=== PATIENT | female | born 2000 | race Caucasian/White ===

== ENCOUNTER 2024-06-24 02:15 | Emergency (ER) | payer SELFPAY ==
[2024-06-24] VITALS (10 sets, daily range): BP systolic 110–140; BP diastolic 71–92; PULSE 82–105; TEMP 36.9; O2SAT 96–99; BMI 22.3
--- NOTE | 2024-06-24 02:26 | ED.GENADUL1 ---
HPI HPI - General Adult General Chief complaint: Nausea/Vomiting/Diarrhea Stated complaint: NVD Time Seen by Provider: 06/24/24 02:19 Source: patient Mode of arrival: walk-in Limitations: no limitations History of Present Illness HPI narrative: 23-year-old female presents to the ED for nausea vomiting and diarrhea which started about 10 hours ago. No fever or hematemesis. She states she vomits when she tries to drink something. LMP was almost a month ago. Related Data Previous Rx's ?Medication ?Instructions ?Recorded ondansetron 4 mg disintegrating 4 mg PO Q6H PRN nausea and 06/24/24 tablet vomiting #20 tabs Allergies Allergy/AdvReac Type Severity Reaction Status Date / Time No Known Drug Allergies Allergy Verified 06/24/24 02:20 Opioid HPI Opioid Management Most Recent Opioid Data: No Data to Display Review of Systems ROS Narrative A ten point review of systems is negative except as noted above. PFSH PFSH Social History Little interest or pleasure in doing things: not at all Feeling down, depressed, or hopeless: not at all Exam Narrative Exam Narrative: Nurses note and vital signs reviewed and patient is not hypoxic. General: The patient appears well and in no apparent distress. Patient is resting comfortably on cart. Skin: Warm, dry, no pallor noted. There is no rash noted. Head: Normocephalic, atraumatic Eye: Normal conjunctiva, no drainage Ears, Nose, Mouth, and Throat: oral mucosa is moist. Nares patent. Cardiovascular: Regular Rate and Rhythm Respiratory: Patient is in no distress, no accessory muscle use, lungs are clear to auscultation, no wheezing, rales or rhonchi Back: non-tender GI: Soft and nontender Musculoskeletal: No joint swelling Neurological: A&O, normal speech Psychiatric: Cooperative Constitutional Vital Signs, click to edit/add: Last Vital Signs Temp 98.5 F 06/24/24 02:22 Pulse 82 06/24/24 02:58 Resp 18 06/24/24 02:58 BP 126/71 06/24/24 02:30 Pulse Ox 99 06/24/24 02:58 O2 Del Method Room Air 06/24/24 02:22 Course Vital Signs Vital signs: Vital Signs Temperature 98.5 F 06/24/24 02:22 Pulse Rate 105 H 06/24/24 02:22 Respiratory Rate 18 06/24/24 02:22 Blood Pressure 140/92 H 06/24/24 02:22 Pulse Oximetry 98 06/24/24 02:22 Oxygen Delivery Method Room Air 06/24/24 02:22 Temperature 98.5 F 06/24/24 02:22 Pulse Rate 82 06/24/24 02:58 Respiratory Rate 18 06/24/24 02:58 Blood Pressure 126/71 06/24/24 02:30 Pulse Oximetry 99 06/24/24 02:58 Oxygen Delivery Method Room Air 06/24/24 02:22 Medical Decision Making MDM Narrative Medical decision making narrative: Blood work is nonspecific and she is not . She was given IV fluids and Zofran and is feeling improved and will be discharged home with a prescription for Zofran. Treatment diagnosis and follow-up were discussed with the patient. Differential Diagnosis Differential Diagnosis: Food poisoning, gastroenteritis, dehydration, Lab Data Lab results reviewed: Yes I reviewed the patient's lab results Labs: Lab Results 06/24/24 Range/Units 02:25 WBC 14.5 H (4.0-11.0) 10^3/uL RBC 4.86 (4.20-5.40) 10^6/uL Hgb 14.2 (12.0-16.0) g/dL Hct 41.2 (36.0-48.0) % MCV 84.8 (81.0-99.0) fL MCH 29.2 (26.7-34.0) pg MCHC 34.5 (29.9-35.2) g/dL RDW 13.0 (11.0-15.0) % Plt Count 242 (150-450) 10^3/uL MPV 10.0 (9.5-13.5) fL Sodium 139 (136-145) mmol/L Potassium 4.1 (3.5-5.1) mmol/L Chloride 104 (98-107) mmol/L Carbon Dioxide 20.7 L (21.0-32.0) mmol/L Anion Gap 18.4 BUN 12.0 (7.0-18.0) mg/dL Creatinine 0.84 (0.55-1.02) mg/dL Est GFR ( Amer) >60 (>=60 mL/min/1.73m^2) Est GFR (Non-Af Amer) >60 (>=60 mL/min/1.73m^2) BUN/Creatinine Ratio 14.3 Glucose 119 H (74-106) mg/dL Calcium 9.0 (8.5-10.1) mg/dL Serum HCG, Qual Negative (NEGATIVE) Discharge Plan Discharge Chief Complaint: Nausea/Vomiting/Diarrhea Clinical Impression: Nausea, vomiting, and diarrhea Patient Disposition: Home, Self-Care Time of Disposition Decision: 03:10 Condition: Good Mode of Transportation: Private Vehicle Prescriptions / Home Meds: New ondansetron 4 mg tablet,disintegrating 4 mg PO Q6H PRN (Reason: nausea and vomiting) Qty: 20 0RF Print Language: Turkmen Instructions: Acute Nausea and Vomiting (ED), Acute Diarrhea (ED) Referrals: Physician,Non-Staff, MD [Primary Care Provider] - 1 week
--- NOTE | 2024-06-24 02:30 | PC.NURSE ---
complains of nausea and vomiting onset 1 day ago around 4:00pm
[2024-06-24] MEDS: 0.9 % SODIUM CHLORIDE 1,000 ML 1000 ML IV (02:34)
[2024-06-24] MEDS: ONDANSETRON PF 4 MG/2 ML VIAL IV (02:34)
[2024-06-24 02:47] LABS: Hematocrit 41.2 % (36.0-48.0); Hemoglobin 14.2 g/dL (12.0-16.0); Mean Corpuscular HGB Conc 34.5 g/dL (29.9-35.2); Mean Corpuscular Hemoglobin 29.2 pg (26.7-34.0); Mean Corpuscular Volume 84.8 fL (81.0-99.0); Platelet Count 242 10^3/uL (150-450); Red Blood Count 4.86 10^6/uL (4.20-5.40); White Blood Count 14.5 10^3/uL (4.0-11.0)
[2024-06-24 02:57] LABS: Anion Gap 18.4; BUN Creatinine Ratio 14.3; Carbon Dioxide 20.7 mmol/L (21.0-32.0); Chloride 104 mmol/L (98-107); Estimated GFR (African America >60 (>=60 mL/min/1.73m^2); Estimated GFR (Non-African Ame >60 (>=60 mL/min/1.73m^2); Glucose 119 mg/dL (74-106); Potassium 4.1 mmol/L (3.5-5.1); Sodium 139 mmol/L (136-145)
[2024-06-24 02:59] LABS: HCG Qualitative NEGATIVE (NEGATIVE); Internal Control Within Normal Limits
[2024-06-24 03:15] LABS: Eosinophils Absolute Manual 0.29 10^3/uL (0.00-0.70); Lymphocytes Absolute Manual 1.01 10^3/uL (1.20-3.80); Monocytes Absolute Manual 0.29 10^3/uL (0.30-0.80)
--- NOTE | 2024-06-24 03:31 | PC.NURSE ---
this patient awake and alert sitting upright on the bed talking on her cell phone while her boyfriend is watching tv
--- NOTE | 2024-06-24 03:46 | PC.NURSE ---
i gave this patient verbal and written discharge orders along with 1 e-script and this patient voices yes to understanding these. at time of discharge this patient voices no concerns and shows no signs of distress
== END 2024-06-24 03:48 | disposition home or self-care (01) ==
PROVIDERS: Emergency Provider Emergency Medicine
DX: R11.2 Nausea with vomiting, unspecified (principal); R19.7 Diarrhea, unspecified
CPT/HCPCS: 36415; 80048; 84703; 85007; 85027; 96361; 96374; 99284; J2405